=== PATIENT | male | born 1985 | race Two or more races ===

== ENCOUNTER 2024-02-15 07:38 | Emergency (ER) | payer MEDICAID ==
[~2024-02-15] VITALS: Ht 170.2 cm; Wt 69.1 kg
[~2024-02-15 07:38] MED LIST: DEXT1LOZ10 MT; PRED20TA2 PO
[2024-02-15] MEDS: KETOROLAC TROMETH 30 MG/ML 1ML VIAL IM ONE (10:32)
[2024-02-15] MEDS: cefTRIAXone SOD 1,000 MG VL IM ONE (10:32)
[2024-02-15] MEDS ORDERED: IBUP1TAB5 PO (10:50)
[2024-02-15] MEDS ORDERED: BACDST PO (10:50)
[2024-02-15 11:04] VITALS: BP 119/79; PULSE 109; RESP 20; TEMP 98.4; O2SAT 100
== END 2024-02-15 11:08 | disposition home or self-care (01) ==
LOC: ER 07:38
DX: L02.213 Cutaneous abscess of chest wall (principal); I10 Essential (primary) hypertension; E11.9 Type 2 diabetes mellitus without complications
CPT/HCPCS: 96372; 99284; J0696; J1885

== ENCOUNTER 2024-03-17 12:43 | Emergency (ER) | payer MEDICAID ==
[~2024-03-17] VITALS: Ht 170.2 cm; Wt 71.4 kg
[~2024-03-17 12:43] MED LIST changes: +BACDST PO; +IBUP1TAB5 PO
[2024-03-17 14:39] VITALS: BP 155/83; PULSE 137; RESP 18; TEMP 98.2; O2SAT 97
[2024-03-17] MEDS ORDERED: NAPR-746 PO (15:09)
[2024-03-17] MEDS ORDERED: CEPH500C PO (15:09)
[2024-03-17] MEDS: cefTRIAXone SOD 1,000 MG VL IM ONE (15:13)
[2024-03-17] MEDS: LET TOPICAL SOLN 5 ML TOP ONE (15:14)
== END 2024-03-17 15:25 | disposition home or self-care (01) ==
LOC: ER 12:57
DX: L03.011 Cellulitis of right finger (principal); E11.9 Type 2 diabetes mellitus without complications; Z79.899 Other long term (current) drug therapy
CPT/HCPCS: 10060; 96372; 99283; J0696; J3490